=== PATIENT | female | born 1955 | race Caucasian/White ===

== ENCOUNTER 2018-06-28 20:23 | Emergency (ER) | payer OTHER ==
[~2018-06-28] VITALS: Ht 162.6 cm; Wt 85.2 kg
[2018-06-28 20:48] VITALS: BP 148/65; PULSE 74; RESP 18; Ht 162.6 cm; Wt 85.2 kg
[2018-06-28] MEDS ORDERED: AMOX1TAB10 PO (23:02)
[2018-06-28] MEDS ORDERED: traMADol 50 MG TAB PO ONE (23:30)
[2018-06-28] MEDS ORDERED: BACITRACIN 0.9 GM OINT TOP ONE (23:30)
[2018-06-28] MEDS ORDERED: AMOXICILLIN/CLAV 875 MG TAB PO ONE (23:30)
--- NOTE | 2018-06-29 21:31 | ERD ---
ER Documentation Chief Complaint Chief Complaint rat bite to right 2nd finger about 30 minutes ago HPI History of Present Illness: 62-year-old female with no past medical history coming in today with complaint of right bite to second finger of right hand that occurred 30 minutes prior to arrival. Patient reports that this was not analysis was a rat that was approximately a foot long. Patient reports that a right was on include trapped in which she was trying to throw to go to operate in the right bit her. Tetanus status unknown. Bleeding control, patient with Kerlix light dressing to affected finger. Reports tetanus status up-to-date in the last 5 years. At home pharmacological/nonpharmacological treatment for symptoms: Denies Denies social concerns; Denies recent foreign travel ROS All systems reviewed and are negative except as per history of present illness. Medications Home Meds Active Scripts Amoxicillin/Potassium Clav (Amox-Clav 875-125 mg Tablet) 875-125 mg Tab, 1 TAB PO BID for INFECTION PREVENTION FROM BITE for 7 Days, #14 TAB Prov:ESTEPHANIA STONER NP 06/28/18 Allergies Allergies: Coded Allergies: No Known Drug Allergies (Verified Allergy, Unknown, 06/28/18) PMhx/Soc Medical and Surgical Hx: pt denies Medical Hx, pt denies Surgical Hx Hx Alcohol Use: No Hx Substance Use: No Hx Tobacco Use: No Smoking Status: Never smoker FmHx Family History: No diabetes, No coronary disease Physical Exam Vitals Vital Signs Date Temp Pulse Resp B/P (MAP) Pulse Ox O2 O2 Flow FiO2 Time Delivery Rate 06/28/18 98.4 74 18 148/65 98 20:48 (92) Physical Exam Const: No acute distress Head: Atraumatic Eyes: Normal Conjunctiva ENT: Normal External Ears, Nose and Mouth. Neck: Full range of motion. No meningismus. Resp: Clear to auscultation bilaterally Cardio: Regular rate and rhythm, no murmurs Abd: Soft, non tender, non distended. Normal bowel sounds Skin: No petechiae or rashes; 1 cm laceration noted to palmar aspect of right- handed second finger, bleeding controlled, no foreign bodies noted Back: No midline or flank tenderness; patient able to bend and flex finger with full range of motion Ext: No cyanosis, or edema Neur: Awake and alert Psych: Normal Mood and Affect Results 24 hrs Current Medications Medications Dose Sig/Sushil Start Time Status Last (Trade) Ordered Route PRN Stop Time Admin Dose Reason Admin 875 mg ONCE ONCE 06/28/18 DC 06/28/18 Amoxicillin/ PO 23:30 06/28/18 23:36 Clavulanate 23:31 Potassium (Augmentin) Tramadol 50 mg ONCE ONCE 06/28/18 DC 06/28/18 HCl PO 23:30 06/28/18 23:36 (Ultram) 23:31 Bacitracin 1 applic ONCE ONCE 06/28/18 DC 06/28/18 (Bacitracin TOP 23:30 06/28/18 23:36 Oint (Ud)) 23:31 Procedures/MDM Laceration secondary ED course includes a thorough examination and history. ED course includes wound cleaning. Low suspicion for life-threatening medical emergency. Otherwise healthy patient presenting with constellation of symptoms likely representing laceration secondary to rat bite characterized by history, physical exam findings. No laceration REPAIR done Due to concern of contaminated wound harboring infection. Patient reassessment: Orders for bacitracin for wound care and to help with pain. Will administer first dose of antibiotic before discharge. Patient verbalizes understanding of discharge instructions and follow-up care. Patient hemodynamically stable. No respiratory distress, otherwise relatively well appearing and nontoxic. Disposition given. Patient educated on diagnoses, prescriptions, follow-up care, return precautions. Strict return precautions given for worsening condition; questions answered discharge. Disposition for discharge with followup in 2 days with PCP/clinic. Departure Diagnosis: Primary Impression: Laceration Additional Impression: Rat bite Encounter type: initial encounter Qualified Codes: W53.11XA - Bitten by r at, initial encounter Condition: Stable Patient Instructions: Animal Bite, General, Laceration, Hand Referrals: [facility] YOU HAVE RECEIVED A MEDICAL SCREENING EXAM AND THE RESULTS INDICATE THAT YOU DO NOT HAVE A CONDITION THAT REQUIRES URGENT TREATMENT IN THE EMERGENCY DEPARTMENT. FURTHER EVALUATION AND TREATMENT OF YOUR CONDITION CAN WAIT UNTIL YOU ARE SEEN IN YOUR DOCTORS OFFICE WITHIN THE NEXT 1-2 DAYS. IT IS YOUR RESPONSIBILITY TO MAKE AN APPOINTMENT FOR FOLOW-UP CARE. IF YOU HAVE A PRIMARY DOCTOR --you should call your primary doctor and schedule an appointment IF YOU DO NOT HAVE A PRIMARY DOCTOR YOU CAN CALL OUR PHYSICIAN REFERRAL HOTLINE AT IF YOU CAN NOT AFFORD TO SEE A PHYSICIAN YOU CAN CHOSE FROM THE FOLLOWING [facility] [address] [place] [facility] [address] [facility] [address] [facility] [facility] [address] [address]. [facility] [address] [facility]. [facility] [address] [facility] YOU HAVE RECEIVED A MEDICAL SCREENING EXAM AND THE RESULTS INDICATE THAT YOU DO NOT HAVE A CONDITION THAT REQUIRES URGENT TREATMENT IN THE EMERGENCY DEPARTMENT. FURTHER EVALUATION AND TREATMENT OF YOUR CONDITION CAN WAIT UNTIL YOU ARE SEEN IN YOUR DOCTORS OFFICE WITHIN THE NEXT 1-2 DAYS. IT IS YOUR RESPONSIBILITY TO MAKE AN APPOINTMENT FOR FOLOW-UP CARE. IF YOU HAVE A PRIMARY DOCTOR --you should call your primary doctor and schedule and appointment IF YOU DO NOT HAVE A PRIMARY DOCTOR YOU CAN CALL OUR PHYSICIAN REFERRAL HOTLINE AT . IF YOU CAN NOT AFFORD TO SEE A PHYSICIAN YOU CAN CHOSE FROM THE FOLLOWING [facility], [facility] INSTITUTIONS: [facility] [address] [place] [address] [facility] [address] [place] [address] [facility] [address] [place] [address] Additional Instructions: Thank you very much for allowing us to participate in your care. Your health and safety is our top priority at [facility]. It is important to read all discharge instructions and education provided in your discharge packet. *Keep the wound clean dry and covered.* Call your primary care doctor TOMORROW for an appointment during the next 2-4 days and bring all the information and medications prescribed. Have prescriptions filled and follow precisely the directions on the label. -Augmentin is an antibiotic; take this medication every day as listed on your prescription. You must complete the entire course of treatment that is listed on your prescription this is very important because it takes a certain number of days to kill the bacteria that can cause the infection. If the symptoms get worse and your provider is unavailable, return to the Emergency Department immediately. ESTEPHANIA STONER NP June 29, 2018 21:31
== END 2018-06-28 23:40 | disposition home or self-care (01) ==
LOC: FTE 20:23
DX: S61.210A Laceration without foreign body of right index finger without damage to nail, initial encounter (principal); W53.11XA Bitten by rat, initial encounter; Y92.9 Unspecified place or not applicable
CPT/HCPCS: Z7502; Z7610; 99283